=== PATIENT | male | born 2000 | race Caucasian/White ===

== ENCOUNTER 2024-02-09 19:11 | Emergency (ER) | payer BC ==
[~2024-02-09] VITALS: Ht 177.8 cm; Wt 49.4 kg
[2024-02-09 19:36] VITALS: BP_SYST 130; PULSE 107; RESP 16; TEMP 98.1; O2SAT 97
[2024-02-09] MEDS ORDERED: METH-776 PO (19:48)
[2024-02-09] MEDS ORDERED: DIPH25CA83 PO (19:48)
[2024-02-09] MEDS ORDERED: CEPH250S PO (19:48)
== END 2024-02-09 19:56 | disposition home or self-care (01) ==
LOC: SED 19:11
DX: N39.0 Urinary tract infection, site not specified (principal); T36.8X5A Adverse effect of other systemic antibiotics, initial encounter; Z79.899 Other long term (current) drug therapy; Y92.89 Other specified places as the place of occurrence of the external cause
CPT/HCPCS: 99283